=== PATIENT | male | born 1980 | race Caucasian/White ===

== ENCOUNTER 2016-12-03 22:20 | Emergency (ER) | payer OTHER ==
[~2016-12-03 22:20] MED LIST: ATEN-102 PO; LISI-357 PO; XANA2TAB2 PO
[2016-12-03 22:21] VITALS: BP 171/109; PULSE 92; RESP 16; TEMP 98.6; O2SAT 100
[2016-12-03] MEDS ORDERED: BACT800T5 PO (23:31)
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
== END 2016-12-03 23:55 | disposition home or self-care (01) ==
LOC: NEPK 22:20
DX: S41.112D Laceration without foreign body of left upper arm, subsequent encounter (principal); L03.114 Cellulitis of left upper limb; X99.9XXD Assault by unspecified sharp object, subsequent encounter; Z48.02 Encounter for removal of sutures
CPT/HCPCS: 99282